=== PATIENT | male | born 1985 | race Caucasian/White ===

== ENCOUNTER 2023-12-31 22:31 | Emergency (ER) | payer OTHER, SELFPAY ==
[2023-12-31 23:28] VITALS: BP 125/53
[2023-12-31 23:39] VITALS: BMI 28.0
[2024-01-01] VITALS: BP 125/69
--- NOTE | 2024-01-01 01:51 | ED.GENMED ---
History of Present Illness
General
Chief Complaint: Skin Surface Trauma
Source: patient
Exam Limitations: none
Time Seen by Provider: 01/01/24 01:35
Travel History
Have you had any contact with someone who has COVID-19?: No
Do you have any symptoms of coronavirus? Fever > 100 degrees, chills, cough, shortness of breath, sore throat, loss of taste or smell, muscle aches, or headache?: No
History of Present Illness
History of Present Illness:
See MDM
Past History
Past History
ED Past Medical History: Psychiatric
ED Past Surgical History: None
Social History
Tobacco: Non-smoker
Alcohol: None
Phy Exam
Physical Exam
Physical Exam:
See MDM
Course
Orders/Labs/Results
Orders:
Orders
01/01/24 01:50
Cephalexin Monohydrate [Keflex] 500 mg PO NOW STA
Ibuprofen [Motrin] 600 mg PO NOW STA
Oxycodone/Acetaminophen [Percocet 5/325] 1 tablet PO NOW STA
Sulfamethox./Trimethoprim Ds [Bactrim Ds 800 mg/160 mg] 1 tablet PO NOW STA
Vital Signs
Initial and Last Documented VS:
Initial Vital Signs
Temp Pulse Resp BP Pulse Ox
99.1 F 69 16 125/53 94
12/31/23 23:28 12/31/23 23:28 12/31/23 23:28 12/31/23 23:28 12/31/23 23:28
Last Documented Vital Signs
Temp Pulse Resp BP Pulse Ox
99.1 F 69 16 125/53 94
12/31/23 23:28 12/31/23 23:28 12/31/23 23:28 12/31/23 23:28 12/31/23 23:28
MDM/Problems Addressed
Differential Diagnosis Includes:
HPI and MDM Narrative:
38-year-old male presenting from long-term for evaluation of cellulitis to his face. He noticed swelling and redness to his right upper lip. Patient started Bactrim 4 days ago with no relief. The guard at bedside indicates that patient has been to
take his medication.
We discussed likely MRSA. I attempted aspiration with 18-gauge needle. No pus obtained. Will treat as cellulitis. Will start Keflex and Bactrim
Physical exam
General: Well appearing and non-toxic
HEENT: protecting airway. Cellulitis and induration without fluctuance to right upper lip
Neck: appears supple
CV: No evidence of cyanosis
Resp: No accessory muscle use
Abd: Non-distended
Extremities: No deformities
Neuro: alert
Psych: Normal affect
Skin: Intact
Problems Addressed including Acute and Chronic Conditions affecting care:
1. Cellulitis
Acuity: acute
Prognosis: stable
Details: It is not certain whether or not patient is actually taking his Bactrim. Will start Bactrim and Keflex and discussed return precautions
Differential Diagnosis (but not limited to): MRSA, cellulitis, impetigo
Testing considered: Wound culture but no pus was obtained
Drug therapy (if applicable): OTC meds, please see d/c instruction regarding Rx drugs
Amount and/or Complexity of Data Reviewed
Clinical info obtained from: Patient
External data reviewed: N/A
Labs I independently reviewed (but not limited to): N/A
Radiology: N/A
Pulse Ox: not hypoxic
EKG independently reviewed: N/A
Feller Seam Operator: N/A
Critical Care: N/A
Risk of Complication:
Social Determinants of health: Poor social support
Discussed with other providers: N/A
Escalation of Care includes Admit/Obs: After being observed in the Emergency Department, pt stable for discharge back to long-term
Occasional wrong word or 'sound a like' substitutions may have occurred due to the inherent limitations of voice recognition software. Read the chart carefully and recognize, using context, where substitutions have occurred.
*Critical Care Note
Total Time (30-74mins, 75-104mins- exclusive of procedures): Not Applicable
ED Attending Note
-
Portions of this chart may have been created with voice recognition software.� Occasional wrong word or��sound alike� substitutions may have occurred due to the inherent limitations of voice recognition software.
Discharge Plan
Departure
Patient Disposition: Half-Way
Date of Disposition: 01/01/24
Time of Disposition: 01:52
Patient with high blood pressure during this ER visit?: No
Discharge Problem:
Cellulitis
Instructions: Cellulitis (Skin Infection), Adult ED
Prescriptions:
New
cephalexin 250 mg capsule
250 mg PO QID 7 Days Qty: 28 0RF
sulfamethoxazole-trimethoprim [Bactrim DS] 800-160 mg tablet
1 tab PO BID 7 Days Qty: 14 0RF
Referrals:
[facility] [Family Provider] -
Activity Restrictions/Additional Instructions:
Watch for worsening signs of infection: fever over 100.5', increasing pain, red streaks around wound, swelling, or increasing drainage of pus. If any of these happen, return to ED promptly. Make sure that you take all your antibiotics as directed
and finish your prescription even if you feel better before the bottle is empty
Yandel Joseph is medically stable for transport back to long-term.
Interventions
Interventions:
*Risk Screen - Suicide Last Done: 12/31/23 23:28
*General Assessment Last Done: 12/31/23 23:28
ED- Fall Risk Assessment Last Done: 12/31/23 23:28
*ED COVID-19 Vaccine History Last Done: 12/31/23 23:28
ED-Skin Assessment Last Done: 12/31/23 23:37
Discharge Date and Time
Print Language: FINNISH
[2024-01-01] MEDS: BACTRIM DS 800 MG/160 MG 1 TABLET PO (02:23)
[2024-01-01] MEDS: MOTRIN 600 MG PO (02:23)
[2024-01-01] MEDS: KEFLEX 500 MG PO (02:23)
[2024-01-01] MEDS: PERCOCET 5/325 1 TABLET PO (02:24)
[2024-01-01 02:25] VITALS: BP 136/71
== END 2024-01-01 02:25 ==
LOC: EMR 22:31
PROVIDERS: EMERGENCY PHYSICIAN Student in an Organized Health Care Education/Training Program
DX: K13.0 Diseases of lips (principal)
CPT/HCPCS: 99284; 10021